=== PATIENT | female | born 1965 | race Caucasian/White ===

== ENCOUNTER → 2016-05-17 | Outpatient (CLI) | payer BC ==
[~2016-05-17] MED LIST: AMBIEN 10MG10 MG PO; AMITRIPTYLINE H50 M1 PO; BENTYL 20MG20 MG/TAB PO; BENTYL PO; BYSTOLIC5 MG PO; COZAAR100 MG PO; DILAUDID 2MG TAB2 MG PO; ESTRACE PO; KEPPRA 500MG500 MG PO; KEPPRA1000 MG PO; LOMOTIL 0.025 M1 TAB PO; LYRICA200 MG PO; PERCOCET 325 MG1 TA2 PO; PRILOSEC 20MG20 MG PO; ROXICODONE 55 MG/TAB PO; SKELAXIN 800MG800 MG PO; STOOL SOFTENER100 M2 PO; TOPAMAX 25MG25 M1 PO; TOPAMAX200 MG PO; VIMPAT50 MG PO; XOPENEX HF0.045 MG/A IH; ZESTRIL 20MG TA20 MG PO; ZOFRAN 4MG T4 MG/TAB PO
== END ==
LOC: MC.RAD 16:12
DX: Z12.31 Encounter for screening mammogram for malignant neoplasm of breast (principal); Z80.3 Family history of malignant neoplasm of breast

== ENCOUNTER → 2016-05-25 | Outpatient (CLI) | payer BC | LOC: COL.LAB 08:48 | PROVIDERS: Internal Medicine | DX: E78.2 Mixed hyperlipidemia (principal); E11.9 Type 2 diabetes mellitus without complications ==

== ENCOUNTER → 2016-10-04 | Outpatient (CLI) | payer BC ==
[2016-10-04 18:00] LABS: BASO # 0.1 (0.0-0.2); BASO % 0.7 % (0.0-2.0); EOS # 0.4 (0.0-0.7); EOS % 3.1 % (0-4.0); GRAN # 8.3 (1.4-6.5); GRAN % 62.7 % (42.2-75.2); HEMOGLOBIN 12.8 g/dl (12.5-16.0); LYMPH # 3.7 (1.2-3.4); LYMPH % 27.6 % (20.0-51.0); MEAN CELL VOLUME 90 fl (80.0-100.0); MEAN CORPUSCULAR HEMOGLOBIN 29 pg (27.0-31.0); MEAN CORPUSCULAR HGB CONC 32 g/dl (33.0-37.0); MEAN PLATELET VOLUME 10.1 fl (7.4-10.4); MONO # 0.7 (0.1-0.6); PLATELET COUNT 298 K/mm3 (130-400); RED BLOOD COUNT 4.44 M/mm3 (4.10-5.30); REDCELL DISTRIBUTION WIDTH-CV 13.4 % (11.5-14.5); WHITE BLOOD COUNT 13.3 K/mm3 (4.8-10.8)
[2016-10-04 18:25] LABS: ADJUSTED CALCIUM 8.9 mg/dL (8.4-10.2); ALBUMIN 4.2 gm/dL (3.5-5.0); BILIRUBIN,TOTAL 0.5 mg/dL (0.0-1.0); CALCIUM 9.1 mg/dL (8.4-10.2); CREATININE, serum 0.65 mg/dL (0.52-1.25); POTASSIUM 4.4 mmol/L (3.4-5.0); TOTAL PROTEIN 7.3 gm/dL (6.4-8.2)
[2016-10-08 10:24] LABS: LACOSAMIDE 7.6 mcg/mL (())
== END ==
LOC: COL.LAB 17:21
PROVIDERS: Psychiatry & Neurology Neurology
DX: G40.209 Localization-related (focal) (partial) symptomatic epilepsy and epileptic syndromes with complex partial seizures, not intractable, without status epilepticus (principal)

== ENCOUNTER → 2016-11-04 | Outpatient (CLI) | payer BC | LOC: COL.LAB 11:07 | DX: E78.2 Mixed hyperlipidemia (principal) ==